=== PATIENT | male | born 1935 | race Caucasian/White ===

== ENCOUNTER 2022-02-20 14:12 | Emergency (ER) | payer OTHER, SELFPAY ==
[2022-02-20 14:13] VITALS: BP 162/82; PULSE 125; RESP 18; TEMP 36.5; O2SAT 95; BMI 18.8
--- NOTE | 2022-02-20 15:10 | EX.ED.GUMALE ---
HPI History of Present Illness Chief Complaint: Complaint Informant: family Narrative Narrative: His stay here he is really through family. Patient has significant dementia. He is on hospice care for generalized weakness dementia. He has been kept on hospice care. He has had a Toney catheter in for about 2 and half years. He had had prostate surgery and what sounds like a TURP. But he was unable to urinate so a Toney was placed. This is changed every month or so. He had obstruction of the Toney and was due to have it changed. Staff came out this morning and they were able to get a Toney in but they only had small 16 Georgian Toney's and it sounds like they blocked with blood and clots after they replaced. Evidently he has had this happen before. He is on aspirin and Plavix. There have been no reports of fevers or vomiting. His appetite is poor but this is not new or different. I talked with the family. It sounds like they just want to get a catheter in and see if we can get the blood test not to block the catheter. PFSH [facility] Medical History HTN (hypertension) Home Medications aspirin 81 mg tablet 81 mg PO DAILY 02/20/22 [History Last Taken Unknown] clopidogrel 75 mg tablet (Plavix) 75 mg PO DAILY 02/20/22 [History Last Taken Unknown] docusate sodium 50 mg capsule (Stool Softener) 50 mg PO BID 02/20/22 [History Last Taken Unknown] isosorbide dinitrate 5 mg chewable tablet 5 mg PO DAILY 02/20/22 [History Last Taken Unknown] loratadine 10 mg capsule 10 mg PO DAILY 02/20/22 [History Last Taken Unknown] lorazepam 0.5 mg tablet (Ativan) 0.5 mg PO QHS PRN Anxiety 02/20/22 [History Last Taken Unknown] trazodone 50 mg tablet 75 mg PO QHS 02/20/22 [History Last Taken Unknown] Allergy/AdvReac Type Severity Reaction Status Date / Time No Known Allergies Allergy Verified 02/20/22 14:13 Social History Smoking Status: Unknown if ever smoked ROS ROS ED ROS Narrative History/review of systems is very limited due to the patient's dementia. Data that is obtainable comes from family. Review of Systems ROS Unobtainable: due to mental status Constitutional Constitutional ED: Denies chills or fever(s) Gastrointestinal Gastrointestinal: Denies diarrhea or vomiting Genitourinary Genitourinary ED: Reports hematuria and other Details: See history of present illness Musculoskeletal Musculoskeletal: Denies back pain Hematologic/Lymphatic Hematologic/Lymphatic: Reports other Details: They deny easy bruising. But they do admit that he has had bleeding in his catheter before. ; Denies easy bleeding or easy bruising Allergic/Immunologic Allergic/Immunologic ED: Denies urticaria EXAM Physical Exam Const Vital Signs: 02/20/22 14:13 Temperature 97.7 F L Temperature Source Temporal Pulse Rate 125 H Respiratory Rate 18 Blood Pressure 162/82 H Blood Pressure Mean 108 Pulse Ox 95 Oxygen Delivery Method Room Air Constitutional Narrative: Patient looks comfortable. He does look rather thin. He is in no acute distress. General Appearance ED: NAD HEENT Reports moist mucous membranes atraumatic Resp normal respiratory effort Cardio Cardio Narrative: Heart rate is about 100. Patient does get a little agitated when he is evaluated and I think this is what got his heart rate up. GI non-tender and non-distended GI Narrative: Abdomen is not distended. There is no sign of tenderness. No sign of CVA tenderness when reaching behind him. no CVA tenderness Back/Spine no CVA tenderness Neuro Neuro Narrative: Patient is oriented to baseline. He is acting normally per family. Psych Psych Narrative: Patient gets just slightly agitated when touched. But other than that he is calm. Skin General Skin Exam: Negative for jaundice MDM MDM MDM Narrative Medical decision making narrative: 18 Georgian coud? was placed without any difficulty. We did not have a larger here. Initially there was a clot followed by some slightly bloody urine. But is rapidly clearing. It is flowing well. It really does not need irrigation at this time. Patient's urine is cloudy but it is now cleared up quite a bit. It is almost all red cells. There are a few white cells but is just a small number. Patient has not been having fevers. He was 97.7 I will send a culture. But since he has a chronic indwelling catheter and only complaint was obstruction and blood which is now resolved I will hold off antibiotics. If he develops a fever vomiting or other concerns he should return. Family is comfortable taking him home. They have been caring for him for some time and with the assistance of hospice. Lab Data Attestation: I reviewed the patient's lab results. Labs: Laboratory Results - last 24 hr 02/20/22 15:25 Urine Color Red Urine Clarity Cloudy Urine pH 7.0 Ur Specific Union 1.015 Urine Protein 100 H Urine Glucose (UA) Normal Urine Ketones 15 H Urine Occult Blood 250 H Urine Nitrite Positive H Urine Bilirubin Negative Urine Urobilinogen 1 H Ur Leukocyte Esterase 500 H Urine RBC > 100 SEEN Urine WBC 10-25 SEEN Ur Squamous Epith Cells 0 SEEN Urine Bacteria 2+ Urine Mucus 0 SEEN Discharge Plan Triage Chief Complaint: Complaint ED Provider: Conor Alejo Dx/Rx/DC Orders Clinical Impression: Complication of Toney catheter, Hematuria Instructions: ED Toney Catheter, Care Prescriptions: No Action trazodone 50 mg Tablet 75 mg PO QHS Stool Softener 50 mg Capsule 50 mg PO BID clopidogrel [Plavix] 75 mg Tablet 75 mg PO DAILY aspirin 81 mg Tablet 81 mg PO DAILY isosorbide dinitrate 5 mg Tablet,Chewable 5 mg PO DAILY loratadine 10 mg Capsule 10 mg PO DAILY lorazepam [Ativan] 0.5 mg Tablet 0.5 mg PO QHS PRN (Reason: Anxiety) Primary Care Provider: Rosi Peterson Referrals: Rosi Peterson MD [Primary Care Provider] - 3-5 Days if not improving Activity Restrictions/Additional Instructions: Urine culture was also sent. Please contact your physician or return if patient develops fevers or other concerns pending the results of these cultures that should be back within 3 days. Disposition Disposition: Home, Self Care
[2022-02-20 15:29] LABS: Mucous, Urine 0 SEEN /hpf (<or=2+); Squamous Epithelial Cells - UA 0 SEEN /hpf (0-5)
[2022-02-20 15:33] LABS: Color, Urine Red (Yellow); Glucose, Dipstick Normal (Normal); Ketone-Dipstick 15 mg/dl (Negative); Leukocyte Esterase-Dipstick 500 /ul (Negative); Nitrite-Dipstick Positive (Negative); Occult Blood-Urine 250 /ul (Negative); Protein-Dipstick 100 mg/dl (Negative); Specific Gravity, Urine 1.015 (1.002-1.030); Urine Bilirubin Dipstick Negative (Negative); Urine Clarity Cloudy (Clear); Urine Urobilinogen 1 mg/dl (Normal)
[2022-02-20 15:54] LABS: Bacteria 2+ /hpf (None Seen); Red Blood Cells-Urine > 100 SEEN /hpf (0-5); White Blood Cells 10-25 SEEN /hpf (0-5)
--- NOTE | 2022-02-20 16:11 | ED.RN ---
PER DR. EATON, BLADDER IRRIGATION CANCELLED. PT CORONADO PATENT AND DRAINING URINE.
== END 2022-02-20 16:25 | disposition home or self-care (01) ==
PROVIDERS: Emergency Provider Emergency Medicine; PCP Family Medicine; Visit Provider Emergency Medicine
DX: T83.091A Other mechanical complication of indwelling urethral catheter, initial encounter (principal); F03.90 Unspecified dementia, unspecified severity, without behavioral disturbance, psychotic disturbance, mood disturbance, and anxiety; Y84.6 Urinary catheterization as the cause of abnormal reaction of the patient, or of later complication, without mention of misadventure at the time of the procedure; R31.9 Hematuria, unspecified; Z51.5 Encounter for palliative care; I10 Essential (primary) hypertension; Z79.02 Long term (current) use of antithrombotics/antiplatelets; Z79.82 Long term (current) use of aspirin; Z79.899 Other long term (current) drug therapy
CPT/HCPCS: 51702; 81001; 87077; 87086; 87088; 87186; 99283; A4216